=== PATIENT | male | born 1950 | race Caucasian/White ===

== ENCOUNTER 2022-02-01 14:57 | Observation (INO) | payer MEDICARE ==
--- NOTE | 2022-02-01 15:29 | ED ---
General Adult HPI - General Chief complaint: Syncope Stated complaint: syncope Time Seen by Provider: 02/01/22 14:57 Source: patient, family, EMS, RN notes reviewed Mode of arrival: EMS Limitations: no limitations - History of Present Illness Initial comments: 71-year-old male with a history of low back injury in the past with chronic pain also a pain stimulator who states he was walking today and he became lightheaded and dizzy. This recurred again he became weak and shaky apparently sat down on the ground with assistance and was noted be shaking. Patient denies any loss of consciousness he remembers all this had no history of shaky before no seizure disorder. No fevers chills nausea vomiting sweats no headache per paramedics he is much improved from the initial contact. He stated all started when he looked up his head started spinning. No other current complaints or modifying factors - Related Data Home Medications Medication Instructions Recorded Confirmed Ezetimibe [Zetia] 10 mg PO DAILY 02/01/22 02/01/22 Fenofibrate 160 mg PO DAILY 02/01/22 02/01/22 Folic Acid 1 mg PO DAILY 02/01/22 02/01/22 Gabapentin 600 mg PO TID 02/01/22 02/01/22 Lansoprazole [Prevacid] 30 mg PO DAILY 02/01/22 02/01/22 Meclizine HCl 12.5 mg PO TID 02/01/22 02/01/22 Mirabegron [Myrbetriq] 25 mg PO DAILY 02/01/22 02/01/22 Morphine Sulfate Ir [MSIR] 15 mg PO Q6HR 02/01/22 02/01/22 Multivit-Min/Folic/Vit K/Lycop 1 tab PO DAILY 02/01/22 02/01/22 [Men's Multivitamin Tablet] Rosuvastatin Calcium 10 mg PO DAILY 02/01/22 02/01/22 Allergies Allergy/AdvReac Type Severity Reaction Status Date / Time No Known Allergies Allergy Verified 02/01/22 15:13 Review of Systems ROS Statement: Those systems with pertinent positive or pertinent negative responses have been documented in the HPI. ROS Other: All systems not noted in ROS Statement are negative. Past Medical History Additional Past Medical History / Comment(s): neuropathy, spinal stimulator for pain History of Any Multi-Drug Resistant Organisms: None Reported Past Surgical History: Back Surgery Past Psychological History: No Psychological Hx Reported Smoking Status: Never smoker Past Alcohol Use History: None Reported Past Drug Use History: None Reported General Exam - General Exam Comments Initial Comments: This is a well-developed well-nourished awake alert oriented 4 male Limitations: no limitations General appearance: alert, in no apparent distress Head exam: Present: atraumatic, normocephalic, normal inspection Eye exam: Present: normal appearance, PERRL, EOMI. Absent: scleral icterus, conjunctival injection, periorbital swelling ENT exam: Present: mucous membranes dry Neck exam: Present: normal inspection, full ROM, other (No stridor JVD or bruits). Absent: tenderness, meningismus, lymphadenopathy Respiratory exam: Present: normal lung sounds bilaterally. Absent: respiratory distress, wheezes, rales, rhonchi, stridor Cardiovascular Exam: Present: regular rate, normal rhythm, normal heart sounds. Absent: systolic murmur, diastolic murmur, rubs, gallop, clicks GI/Abdominal exam: Present: soft, normal bowel sounds. Absent: distended, tenderness, guarding, rebound, rigid, bruit, pulsatile mass Extremities exam: Present: normal inspection, full ROM, normal capillary refill. Absent: tenderness, pedal edema, joint swelling, calf tenderness Back exam: Present: normal inspection Neurological exam: Present: alert, oriented X3, CN II-XII intact Psychiatric exam: Present: normal affect, normal mood Skin exam: Present: warm, dry, intact, normal color. Absent: rash Course Vital Signs 02/01/22 02/01/22 15:05 19:00 Temperature 97.7 F Pulse Rate 91 82 Respiratory 18 18 Rate Blood Pressure 135/93 144/95 O2 Sat by Pulse 95 95 Oximetry EKG Findings - EKG Results: EKG: interpreted by ANTONIA, sinus rhythm (Sinus rhythm 84 TX interval 179 QRS duration 112 QT/QTC 370/411 left anterior fascicular block no acute ST-T wave changes seen) Medical Decision Making - Medical Decision Making I did have one discussed with the patient and his regarding the findings patient did have an episode lasting approximately 3-5 minutes of what appeared to be shaking-like activity a bystander who is familiar with seizures look like a seizure. Patient states he was having recurrent episodes of dizziness when he would look up but then when he would look down it was fine. He denied any palpitations chest pain focal weakness to his upper or lower extremities patient will be admitted for inpatient evaluation and treatment case be discussed with Dr. Junior on city call - Lab Data Result diagrams: 02/01/22 15:07 02/01/22 15:07 Lab Results 02/01/22 02/01/22 02/01/22 Range/Units 15:07 15:07 15:07 WBC 5.7 (3.8-10.6) k/uL RBC 4.82 (4.30-5.90) m/uL Hgb 15.2 (13.0-17.5) gm/dL Hct 44.0 (39.0-53.0) % MCV 91.3 (80.0-100.0) fL MCH 31.5 (25.0-35.0) pg MCHC 34.5 (31.0-37.0) g/dL RDW 12.5 (11.5-15.5) % Plt Count 321 (150-450) k/uL MPV 7.8 Neutrophils % 51 % Lymphocytes % 34 % Monocytes % 8 % Eosinophils % 4 % Basophils % 1 % Neutrophils # 2.9 (1.3-7.7) k/uL Lymphocytes # 1.9 (1.0-4.8) k/uL Monocytes # 0.5 (0-1.0) k/uL Eosinophils # 0.2 (0-0.7) k/uL Basophils # 0.1 (0-0.2) k/uL Sodium 141 (137-145) mmol/L Potassium 3.9 (3.5-5.1) mmol/L Chloride 105 (98-107) mmol/L Carbon Dioxide 21 L (22-30) mmol/L Anion Gap 15 mmol/L BUN 17 (9-20) mg/dL Creatinine 1.53 H (0.66-1.25) mg/dL Est GFR (CKD-EPI)AfAm 52 (>60 ml/min/1.73 sqM) Est GFR (CKD-EPI)NonAf 45 (>60 ml/min/1.73 sqM) Glucose 87 (74-99) mg/dL Plasma Lactic Acid Rodolfo (0.7-2.0) mmol/L Calcium 9.5 (8.4-10.2) mg/dL Magnesium 2.0 (1.6-2.3) mg/dL Total Bilirubin 0.7 (0.2-1.3) mg/dL AST 38 (17-59) U/L ALT 15 (4-49) U/L Alkaline Phosphatase 50 (38-126) U/L Creatine Kinase 93 (55-170) U/L Total Protein 6.8 (6.3-8.2) g/dL Albumin 4.5 (3.5-5.0) g/dL Lipase 221 (23-300) U/L TSH 3.940 (0.465-4.680) mIU/L Urine Color Light Yellow Urine Appearance Clear (Clear) Urine pH 6.5 (5.0-8.0) Ur Specific [place] 1.006 (1.001-1.035) Urine Protein Negative (Negative) Urine Glucose (UA) Negative (Negative) Urine Ketones Negative (Negative) Urine Blood Negative (Negative) Urine Nitrite Negative (Negative) Urine Bilirubin Negative (Negative) Urine Urobilinogen <2.0 (<2.0) mg/dL Ur Leukocyte Esterase Negative (Negative) Serum Alcohol <10 mg/dL 02/01/22 Range/Units 15:07 WBC (3.8-10.6) k/uL RBC (4.30-5.90) m/uL Hgb (13.0-17.5) gm/dL Hct (39.0-53.0) % MCV (80.0-100.0) fL MCH (25.0-35.0) pg MCHC (31.0-37.0) g/dL RDW (11.5-15.5) % Plt Count (150-450) k/uL MPV Neutrophils % % Lymphocytes % % Monocytes % % Eosinophils % % Basophils % % Neutrophils # (1.3-7.7) k/uL Lymphocytes # (1.0-4.8) k/uL Monocytes # (0-1.0) k/uL Eosinophils # (0-0.7) k/uL Basophils # (0-0.2) k/uL Sodium (137-145) mmol/L Potassium (3.5-5.1) mmol/L Chloride (98-107) mmol/L Carbon Dioxide (22-30) mmol/L Anion Gap mmol/L BUN (9-20) mg/dL Creatinine (0.66-1.25) mg/dL Est GFR (CKD-EPI)AfAm (>60 ml/min/1.73 sqM) Est GFR (CKD-EPI)NonAf (>60 ml/min/1.73 sqM) Glucose (74-99) mg/dL Plasma Lactic Acid [place] 2.0 (0.7-2.0) mmol/L Calcium (8.4-10.2) mg/dL Magnesium (1.6-2.3) mg/dL Total Bilirubin (0.2-1.3) mg/dL AST (17-59) U/L ALT (4-49) U/L Alkaline Phosphatase (38-126) U/L Creatine Kinase (55-170) U/L Total Protein (6.3-8.2) g/dL Albumin (3.5-5.0) g/dL Lipase (23-300) U/L TSH (0.465-4.680) mIU/L Urine Color Urine Appearance (Clear) Urine pH (5.0-8.0) Ur Specific [place] (1.001-1.035) Urine Protein (Negative) Urine Glucose (UA) (Negative) Urine Ketones (Negative) Urine Blood (Negative) Urine Nitrite (Negative) Urine Bilirubin (Negative) Urine Urobilinogen (<2.0) mg/dL Ur Leukocyte Esterase (Negative) Serum Alcohol mg/dL - Radiology Data Radiology results: report reviewed (Imaging reviewed no acute findings), image reviewed Disposition Clinical Impression: Syncope, Seizure Disposition: ADMITTED IP TO THIS [facility] Condition: Stable Referrals: Saleem Chan MD [Primary Care Provider] - 1-2 days Decision Date: 02/01/22 Decision Time: 19:45
[2022-02-01 15:41] LABS: ALT 15 U/L (4-49); AST 38 U/L (17-59); African American GFR (CKD) 52 (>60 ml/min/1.73 sqM); Albumin 4.5 g/dL (3.5-5.0); Alcohol <10 mg/dL; Alkaline Phosphatase 50 U/L (38-126); Anion Gap 15 mmol/L; Blood Urea Nitrogen 17 mg/dL (9-20); Calcium 9.5 mg/dL (8.4-10.2); Carbon Dioxide 21 mmol/L (22-30); Chloride 105 mmol/L (98-107); Creatine Kinase 93 U/L (55-170); Glucose 87 mg/dL (74-99); Lipase 221 U/L (23-300); Non-African American GFR(CKD) 45 (>60 ml/min/1.73 sqM); Potassium 3.9 mmol/L (3.5-5.1); Sodium 141 mmol/L (137-145); Total Bilirubin 0.7 mg/dL (0.2-1.3); Total Protein 6.8 g/dL (6.3-8.2)
[2022-02-01 15:42] LABS: Basophils # (A) 0.1 k/uL (0-0.2); Basophils % (A) 1 %; Eosinophils # (A) 0.2 k/uL (0-0.7); Eosinophils % (A) 4 %; HGB 15.2 gm/dL (13.0-17.5); Lymphocytes # (A) 1.9 k/uL (1.0-4.8); Lymphocytes % (A) 34 %; MCH 31.5 pg (25.0-35.0); MCHC 34.5 g/dL (31.0-37.0); MCV 91.3 fL (80.0-100.0); Mean Platelet Volume 7.8; Monocytes # (A) 0.5 k/uL (0-1.0); Monocytes % (A) 8 %; Neutrophils # (A) 2.9 k/uL (1.3-7.7); Neutrophils % (A) 51 %; Platelet Count 321 k/uL (150-450); RBC 4.82 m/uL (4.30-5.90); RDW 12.5 % (11.5-15.5); WBC 5.7 k/uL (3.8-10.6)
--- NOTE | 2022-02-01 15:48 | CT ---
EXAMINATION TYPE: CT brain wo con DATE OF EXAM: 02/01/2022 COMPARISON: None HISTORY: syncope CT DLP: 1227.4 mGycm Automated exposure control for dose reduction was used. There is cerebral cortical atrophy. There is no mass effect or midline shift. No sign of intracranial hemorrhage. Calvarium is intact. IMPRESSION: Cerebral atrophy. No acute intracranial abnormality.
--- NOTE | 2022-02-01 15:55 | XR ---
EXAMINATION TYPE: XR chest 2V DATE OF EXAM: 02/01/2022 COMPARISON: NONE HISTORY: Pain TECHNIQUE: 2 view FINDINGS: Heart and mediastinum are normal. Lungs are clear. Diaphragm is normal. There is no stimula tor in the lower thoracic spine. IMPRESSION: Normal chest
[2022-02-01 17:33] LABS: Appearance,Urine Clear (Clear); Bilirubin,Urine Negative (Negative); Blood,Urine Negative (Negative); Color,Urine Light Yellow; Glucose,Urine (UA) Negative (Negative); Ketones,Urine Negative (Negative); Leukocyte Esterase,Urine Negative (Negative); Nitrite,Urine Negative (Negative); PH, Urine 6.5 (5.0-8.0); Protein,Urine Negative (Negative); Specific Gravity,Urine 1.006 (1.001-1.035); Urobilinogen,Urine <2.0 mg/dL (<2.0)
[2022-02-01] MEDS ORDERED: NALOXONE 0.4 MG/ML 1 ML VIAL IV PRN (19:59)
[2022-02-01] MEDS: GABAPENTIN 300 MG CAP PO SCH (21:11)
[2022-02-01] MEDS: MECLIZINE 12.5 MG TAB PO SCH (21:12)
[2022-02-01] MEDS: SODIUM CHLORIDE 0.9% 1,000 ML IV SCH (21:12)
[2022-02-01] MEDS: MORPHINE SULFATE IR 15 MG TABLET PO SCH (23:37)
[2022-02-02] MEDS: MORPHINE SULFATE IR 15 MG TABLET PO SCH ×4 (06:32→23:37)
[2022-02-02] MEDS: MECLIZINE 12.5 MG TAB PO SCH ×3 (09:40→21:36)
[2022-02-02] MEDS: SODIUM CHLORIDE 0.9% 1,000 ML IV SCH ×2 (09:40→11:45)
[2022-02-02] MEDS: FOLIC ACID 1 MG TAB PO SCH (09:41)
[2022-02-02] MEDS: PANTOPRAZOLE 40 MG TABLET PO SCH (09:41)
[2022-02-02] MEDS: FENOFIBRATE 160 MG TAB PO SCH (09:41)
[2022-02-02] MEDS: ATORVASTATIN 20 MG TAB PO SCH (09:41)
[2022-02-02] MEDS: MULTIVITAMINS, THERA 1 EACH TAB PO SCH (09:41)
[2022-02-02] MEDS: GABAPENTIN 300 MG CAP PO SCH ×3 (09:42→21:36)
[2022-02-02] MEDS: PATIENT'S OWN (Mirabegron [Myrbetriq] 25 MG Tab.Er.24h) PO SCH (09:44)
[2022-02-02] MEDS: EZETIMIBE 10 MG TAB PO SCH (11:44)
--- NOTE | 2022-02-02 13:14 | P.CNNES ---
History of Present Illness Consult date: 02/02/22 Requesting physician: Mansoor Morris Reason for Consult: Possible new-onset seizure, syncopal episode History of Present Illness: Patient is a 71-year-old male came to the hospital by ambulance yesterday at 2:57 PM for possible syncopal spell versus seizure. As per EMS flow sheet, when they arrived, found patient laying on the ground. Patient was noted to be alert but weak and unstable. Patient states he was walking with his and started to feel weak and disoriented. Patient had possible syncopal episode with seizure-like activity. Patient's EKG shows sinus tachycardia. EKG was unremarkable. Patient's blood glucose was 81 mg/dL. Patient's blood pressure 173/93, pulse rate 101, respirations 18, saturation 97%. Patient's blood test shows normal CBC, normal chem 20, but BUN normal 17 creatinine 1.53. Troponins negative. TSH normal, lipase normal. UA negative. Blood alcohol level negative. CT head showed cerebral atrophy. No acute process. I personally reviewed CT head, agree with the findings. EKG with sinus rhythm, left anterior fascicular block. Chest x-ray revealed no acute process. Patient's and daughter were present at the time of this interview. They mentioned that patient and his were walking in the main street in [place], when he started feeling dizzy. The dizziness would get worse if he would look up, felt will pass out. He would sit down on a bench, and puts his head down and feels better after resting for couple minutes, but the symptoms would not go away completely. He would get up again and start walking but the dizziness will get worse. He took multiple breaks by sitting on the bench. He just wanted to go back home that was about 1-1/2 blocks away. After walking 3 blocks, he was walking, again became dizzy and then he started falling over, but his helped him. He was shaking for 3 minutes. Patient denies loss of consciousness, as he remembers shaking. There was no tongue bite or loss of control of urine. He did bump his hand against the bricks, but did not suffer from significant injury. Patient's called the ambulance and was brought here. Patient states that about once or twice a year he gets similar symptoms of di zziness while standing or walking, but after he sits down or lays down for half an hour, it goes away. Patient states about 2 years ago he was raking leaves, and the same thing happened again and, when he started shaking like this time. Patient also used to drink quite heavily about 8-12 beers per day for about 15- 20 years. After he quit alcohol, he had a seizure, which was felt to be alcohol withdrawal related, or related to use of Cymbalta, which was just started at that time. After Cymbalta was discontinued, he never had any seizure-like spell. Patient's medications include morphine 15 mg every 6 hours, Myrbetriq, Zetia 10 mg, multivitamin, meclizine, Prevacid, gabapentin 600 mg 3 times a day, folic acid 1 mg, fenofibrate, Crestor 10 mg. patient has neuropathy in the legs, low back pain and frequent grams. Patient quit tobacco and alcohol use 30 years ago. Patient has smoked 2 packs per day and used to drink 8-12 beers per day, for 15-20 years prior to quitting 30 years ago. Patient states that he has chronic low back pain for which he has been on morphine since 2002. He does have an electric stimulator. Review of Systems Constitutional: Denies chills, Denies fever Eyes: denies blurred vision, denies pain Ears, nose, mouth and throat: Reports headache, Denies sore throat Cardiovascular: Reports lightheadedness, Reports shortness of breath, Denies anand st pain, Denies leg edema Respiratory: Denies cough Gastrointestinal: Denies abdominal pain, Denies diarrhea, Denies nausea, Denies vomiting Musculoskeletal: Denies myalgias Integumentary: Denies pruritus, Denies rash Psychiatric: Reports anxiety, Denies depression Endocrine: Denies fatigue, Denies weight change Hematologic/Lymphatic: Denies easy bruising Allergic/Immunologic: Denies persistent infections Past Medical History Additional Past Medical History / Comment(s): neuropathy, spinal stimulator for pain History of Any Multi-Drug Resistant Organisms: None Reported Past Surgical History: Back Surgery Past Psychological History: No Psychological Hx Reported Smoking Status: Former smoker Past Alcohol Use History: None Reported Past Drug Use History: None Reported Medications and Allergies Home Medications Medication Instructions Recorded Confirmed Type Ezetimibe [Zetia] 10 mg PO DAILY 02/01/22 02/01/22 History Fenofibrate 160 mg PO DAILY 02/01/22 02/01/22 History Folic Acid 1 mg PO DAILY 02/01/22 02/01/22 History Gabapentin 600 mg PO TID 02/01/22 02/01/22 History Lansoprazole [Prevacid] 30 mg PO DAILY 02/01/22 02/01/22 History Meclizine HCl 12.5 mg PO TID 02/01/22 02/01/22 History Mirabegron [Myrbetriq] 25 mg PO DAILY 02/01/22 02/01/22 History Morphine Sulfate Ir [MSIR] 15 mg PO Q6HR 02/01/22 02/01/22 History Multivit-Min/Folic/Vit K/Lycop 1 tab PO DAILY 02/01/22 02/01/22 History [Men's Multivitamin Tablet] Rosuvastatin Calcium 10 mg PO DAILY 02/01/22 02/01/22 History Allergies Allergy/AdvReac Type Severity Reaction Status Date / Time No Known Allergies Allergy Verified 02/01/22 15:13 Physical Examination - Vital Signs Vital Signs: Vital Signs Temp Pulse Pulse Resp BP BP Pulse Ox 02/02/22 07:45 97.7 F 67 16 150/81 98 02/02/22 04:00 68 16 130/85 97 02/01/22 22:00 98.2 F 72 18 147/92 96 02/01/22 21:13 76 15 126/90 96 02/01/22 21:02 97.8 F 78 17 126/90 98 02/01/22 19:00 82 18 144/95 95 02/01/22 15:05 97.7 F 91 18 135/93 95 Intake and Output 02/01/22 02/02/22 02/02/22 22:59 06:59 14:59 Intake Total 485 1485 Balance 485 1485 Intake: Intake, IV Titration 1000 Amount Sodium Chloride 0.9% 1, 1000 000 ml @ 130 mls/hr IV . Q7H42M [facility] Rx#:[id number] Oral 485 485 Other: Voiding Method Toilet # Voids 1 1 1 Weight 79.832 kg Patient is an elderly male, in no acute distress. Patient is alert awake oriented to time place and person. Speech and language functions are normal. Patient can name and repeat very well. No aphasia or dysarthria. Attention, concentration and fund of knowledge is adequate. On cranial nerve examination, pupils are equal, round and reacting to light, visual doan are full on confrontation, with no neglect on double simultaneous stimulation. Extraocular muscles are intact with no nystagmus. Face is symmetric, tongue protrudes to the midline. Palatal elevation and sensation normal, hearing and shoulder shrug normal, facial sensation normal. On muscle strength testing, there is no pronator drift and the strength is normal in arms and legs distally and proximally. Deep tendon reflexes are symmetric biceps 1-1+, brachioradialis 1-1+, knees 1, ankles 0 and plantars downgoing bilaterally. Sensory to touch is equal with no neglect on double simultaneous stimulation. Cerebellar function showed no ataxia for [id number] testing. No dysdiadochokinesia. No ataxia for [id number] testing on either side. Tone and bulk of muscles normal. Patient has mild tremulousness for outstretched hands particularly the left. Gait deferred.. On general examination, there is no carotid bruit or murmur, S1-S2 audible. Chest is clear on consultation. Abdomen is soft nontender. No organomegaly, bowel sounds present. Peripheral pulses are present. No edema. Results - Laboratory Findings CBC and BMP: 02/01/22 15:07 02/01/22 15:07 Abnormal Lab Findings: Abnormal Labs 02/01/22 15:07 Carbon Dioxide 21 L Creatinine 1.53 H Assessment and Plan Assessment: * Syncopal spell versus convulsive syncope. Seizure appears unlikely. History of near syncopal spells in the past. * Chronic back pain, history of spinal cord simulator. 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 Plan: * We will perform syncopal workup. * Check carotid Doppler to rule out stenosis * EEG to rule out any epileptiform activity. * 2-D echo * Neurology will follow. Thank you for the consult.
--- NOTE | 2022-02-02 15:25 | US ---
EXAMINATION TYPE: US carotid duplex BILAT DATE OF EXAM: 02/02/2022 COMPARISON: NONE CLINICAL HISTORY: Syncope. TECHNIQUE: Carotid duplex ultrasound examination. Indirect Doppler criteria was utilized. FINDINGS: EXAM MEASUREMENTS: RIGHT: Peak Systolic Velocity (PSV) cm/sec ----- Right CCA: 54.9 ----- Right ICA: 56.6 ----- Right ECA: 48.8 ICA/CCA ratio: 1.0 RIGHT: End Diastole cm/sec ----- Right CCA: 19.1 ----- Right ICA: 27.8 ----- Right ECA: 6.9 LEFT: Peak Systolic Velocity (PSV) cm/sec ----- Left CCA: 72.3 ----- Left ICA: 76.8 ----- Left ECA: 57.0 ICA/CCA ratio: 1.1 LEFT: End Diastole cm/sec ----- Left CCA: 19.1 ----- Left ICA: 29.6 ----- Left ECA: 8.7 VERTEBRALS (direction of flow): Right Vertebral: Antegrade Left Vertebral: Antegrade Rhythm: Normal [employer] NOTES: No significant stenosis seen, no elevated velocities. Mild to moderate plaque note d. IMPRESSION: Mild to moderate atherosclerotic plaque bilaterally with less than 50% stenosis at the origin of the internal carotid arteries bilaterally. Criteria for Assigning % of Stenosis / Diameter reduction (Estimation based on the indirect measurements of the internal carotid artery velocities (ICA PSV). 1. Normal (no stenosis)=ICA PSV < 125 cm/s: ratio < 2.0: ICA EDV<40 cm/s. 2. Less than 50% stenosis=ICA PSV < 125 cm/s: ratio < 2.0: ICA EDV<40 cm/s. 3. 50 to 69% stenosis=ICA PSV of 125 to 230 cm/s: ration 2.0 ? 4.0: ICA EDV 40-100 cm/s. 4. Greater than 70% stenosis to near occlusion= ICA PSV > 230 cm/s: ratio > 4.0: ICA EDV > 100 cm/s. 5. Near occlusion= ICA PSV velocities may be low or undetectable: variable ratio and ICA EDV. 6. Total occlusion=unable to detect flow.
[2022-02-02] MEDS: ACETAMINOPHEN TAB 325 MG TAB PO PRN (17:34)
[2022-02-02 20:19] VITALS: RESP 16
[2022-02-03] MEDS: SODIUM CHLORIDE 0.9% 1,000 ML IV SCH ×2 (06:18→19:39)
[2022-02-03] MEDS: MORPHINE SULFATE IR 15 MG TABLET PO SCH ×2 (06:18→19:39)
[2022-02-03 09:46] LABS: Calcium 9.8 mg/dL (8.4-10.2); Potassium 4.5 mmol/L (3.5-5.1)
--- NOTE | 2022-02-03 09:54 | P.HPIM ---
History of Present Illness H&P Date: 02/02/22 This is a 71 year old male who follows with Dr. Saleem Chan in the outpatient setting and presented to the emergency department with feeling of syncope and had been out walking and started becoming lightheaded and dizzy and had to sit down and denies any passing out. Patient reports he has no seizure history although when he was drinking did have an alcoholic withdrawal induced seizure one time. Patient denied chest pain, shortness of breath. Neurology along with pain management as patient does have a pain stimulator and follows in the outpatient setting. Patient with a past medical history of neuropathy, spinal stimulator for pain. Patient does have meclizine on his med list that he uses as needed. On admissions labs show an elevated creatinine of 1.53 and other labs within normal limits, troponins 2 were negative and urinalysis was negative. Patient was started on gentle IV hydration and other home meds have been reordered. Brain CT was done showing cerebral atrophy with no acute intracranial abnormality. Chest x-ray was normal. EKG showing sinus rhythm with a heart rate of 84. REVIEW OF SYSTEMS: CONSTITUTIONAL: No fever, no malaise, no fatigue. HEENT: No recent visual problems or hearing problems. Denied any sore throat. CARDIOVASCULAR: No chest pain, orthopnea, PND, no palpitations, no syncope. PULMONARY no hemoptysis. GASTROINTESTINAL: No diarrhea, no nausea, no vomiting, no abdominal pain. NEUROLOGICAL: No headaches, no weakness, no numbness. Patient reported dizziness, lightheadedness, feeling of passing out but did not pass out which has resolved since HEMATOLOGICAL: Denies any bleeding or petechiae. GENITOURINARY: Denies any burning micturition, frequency, or urgency. MUSCULOSKELETAL/RHEUMATOLOGICAL: Denies any joint pain, swelling, or any muscle pain. reports resolved right hip pain ENDOCRINE: Denies any polyuria or polydipsia. The rest of the 14-point review of systems is negative. PHYSICAL EXAMINATION: GENERAL: The patient is alert and oriented x3, not in any acute distress. Well developed, well nourished. HEENT: Pupils are round and equally reacting to light. EOMI. No scleral icterus. No conjunctival pallor. Normocephalic, atraumatic. No pharyngeal erythema. No thyromegaly. CARDIOVASCULAR: S1 and S2 present. No murmurs, rubs, or gallops. PULMONARY: Bilateral diminished breath sounds with no wheezing or rhonchi noted. ABDOMEN: Soft, nontender, nondistended, normoactive bowel sounds. No palpable organomegaly. MUSCULOSKELETAL: No joint swelling or deformity. EXTREMITIES: No cyanosis, clubbing, or pedal edema. NEUROLOGICAL: Gross neurological examination did not reveal any focal deficits. SKIN: No rashes. Assessment: Dizziness, lightheadedness episode possible presyncopal History of neuropathy with a spinal stimulator for pain and follows with pain management Elevated creatinine, likely prerenal Diabetes mellitus, type II Hyperlipidemia GI prophylaxis DVT prophylaxis Full code Plan: Recommend gentle IV hydration and neurology consulted Neurological workup including carotid Doppler Pain management consulted as patient does have a pain stimulator and follows outpatient CT brain was done showing no acute abnormalities Recommend repeat labs in a.m. Recommend resuming home meds Await neurology and pain management clearance Will order 2-D echo which is pending Possible discharge in 24-48 hours The impression and plan of care has been dictated as a scribe by Susanna Gamble, Nurse Practitioner as directed. MD Emily I have performed a history and examination and MDM of this patient, discussed the same with the dictator, and agree with the dictator's assessment and plan as written ,documented as a scribe. Based on total visit time, I have performed more than 50% of the visit. Past Medical History Additional Past Medical History / Comment(s): neuropathy, spinal stimulator for pain History of Any Multi-Drug Resistant Organisms: None Reported Past Surgical History: Back Surgery Past Psychological History: No Psychological Hx Reported Smoking Status: Never smoker Past Alcohol Use History: None Reported Past Drug Use History: None Reported Medications and Allergies Home Medications Medication Instructions Recorded Confirmed Type Ezetimibe [Zetia] 10 mg PO DAILY 02/01/22 02/01/22 History Fenofibrate 160 mg PO DAILY 02/01/22 02/01/22 History Folic Acid 1 mg PO DAILY 02/01/22 02/01/22 History Gabapentin 600 mg PO TID 02/01/22 02/01/22 History Lansoprazole [Prevacid] 30 mg PO DAILY 02/01/22 02/01/22 History Meclizine HCl 12.5 mg PO TID 02/01/22 02/01/22 History Mirabegron [Myrbetriq] 25 mg PO DAILY 02/01/22 02/01/22 History Morphine Sulfate Ir [MSIR] 15 mg PO Q6HR 02/01/22 02/01/22 History Multivit-Min/Folic/Vit K/Lycop 1 tab PO DAILY 02/01/22 02/01/22 History [Men's Multivitamin Tablet] Rosuvastatin Calcium 10 mg PO DAILY 02/01/22 02/01/22 History Allergies Allergy/AdvReac Type Severity Reaction Status Date / Time No Known Allergies Allergy Verified 02/01/22 15:13 Physical Exam Vitals: Vital Signs Temp Pulse Pulse Resp BP BP Pulse Ox 02/02/22 11:45 70 16 160/94 97 02/02/22 07:45 97.7 F 67 16 150/81 98 02/02/22 04:00 68 16 130/85 97 02/01/22 22:00 98.2 F 72 18 147/92 96 02/01/22 21:13 76 15 126/90 96 02/01/22 21:02 97.8 F 78 17 126/90 98 02/01/22 19:00 82 18 144/95 95 02/01/22 15:05 97.7 F 91 18 135/93 95 Intake and Output 02/01/22 02/02/22 02/02/22 22:59 06:59 14:59 Intake Total 485 1485 Balance 485 1485 Intake: Intake, IV Titration 1000 Amount Sodium Chloride 0.9% 1, 1000 000 ml @ 130 mls/hr IV . [id number] [facility] Rx#:[id number] Oral 485 485 Other: Voiding Method Toilet Toilet # Voids 1 1 1 Weight 79.832 kg Results CBC & Chem 7: 02/01/22 15:07 02/01/22 15:07 Labs: Abnormal Lab Results - Last 24 Hours (Table) 02/01/22 Range/Units 15:07 Carbon Dioxide 21 L (22-30) mmol/L Creatinine 1.53 H (0.66-1.25) mg/dL
[2022-02-03] MEDS: ATORVASTATIN 20 MG TAB PO SCH (09:58)
[2022-02-03] MEDS: GABAPENTIN 300 MG CAP PO SCH ×3 (10:00→21:19)
[2022-02-03] MEDS: FENOFIBRATE 160 MG TAB PO SCH (10:00)
[2022-02-03] MEDS: FOLIC ACID 1 MG TAB PO SCH (10:00)
[2022-02-03] MEDS: MECLIZINE 12.5 MG TAB PO SCH ×3 (10:01→21:19)
[2022-02-03] MEDS: MULTIVITAMINS, THERA 1 EACH TAB PO SCH (10:01)
[2022-02-03] MEDS: PANTOPRAZOLE 40 MG TABLET PO SCH (10:02)
[2022-02-03] MEDS: ACETAMINOPHEN TAB 325 MG TAB PO PRN (10:02)
[2022-02-03] MEDS: PATIENT'S OWN (Mirabegron [Myrbetriq] 25 MG Tab.Er.24h) PO SCH (11:10)
[2022-02-03] MEDS: EZETIMIBE 10 MG TAB PO SCH (19:39)
--- NOTE | 2022-02-03 23:44 | P.PN ---
Subjective Progress Note Date: 02/03/22 This is a 71 year old male who follows with Dr. Saleem Chan in the outpatient setting and presented to the emergency department with feeling of syncope and had been out walking and started becoming lightheaded and dizzy and had to sit down and denies any passing out. Patient reports he has no seizure history although when he was drinking did have an alcoholic withdrawal induced seizure one time. Patient denied chest pain, shortness of breath. Neurology along with pain management as patient does have a pain stimulator and follows in the outpatient setting. Patient with a past medical history of neuropathy, spinal stimulator for pain. Patient does have meclizine on his med list that he uses a s needed. On admissions labs show an elevated creatinine of 1.53 and other labs within normal limits, troponins 2 were negative and urinalysis was negative. Patient was started on gentle IV hydration and other home meds have been reordered. Brain CT was done showing cerebral atrophy with no acute intracranial abnormality. Chest x-ray was normal. EKG showing sinus rhythm with a heart rate of 84. 02/03/2022 Patient is seen and evaluated in follow-up with no acute overnight issues noted. Neurology following an EEG was done and reported as normal although computers are down and unable to see the report. Discussed with neurology Dr. Haywood and has been cleared. Discussion of possible event monitor although family reports he has a senior talent acquisition specialist out of [place] Dr. Carlisle and has an February appointment which she is calling to have him seen sooner. Patient also follows with Dr. Han pain management and has a scheduled appointment as well. Awaiting 2-D echo to be read and agreeable to stay for the results. Patient initially was anxious to go home. Patient denies any further episodes of dizziness or lightheadedness. Reports mild headache. Blood pressure is mildly elevated and will give a one time norvasc and monitor overnight. Review of systems: Constitutional: No reports of fatigue, fever, or chills, reports mild headache Cardiovascular: No reports of chest pain or palpitations Respiratory: No reports of shortness of breath or cough GI: No reports of nausea, vomiting, or diarrhea : No reports of dysuria or retention Neurovascular: No reports of weakness or numbness All medications have been reviewed Active Medications Acetaminophen (Acetaminophen Tab 325 Mg Tab) 650 mg PO Q6HR PRN PRN Reason: Mild Pain or Fever > 100.5 Last Admin: 02/03/22 10:02 Dose: 650 mg Atorvastatin Calcium (Atorvastatin 20 Mg Tab) 20 mg PO DAILY [facility] Last Admin: 02/03/22 09:58 Dose: 20 mg Ezetimibe (Ezetimibe 10 Mg Tab) 10 mg PO DAILY [facility] Last Admin: 02/02/22 11:44 Dose: 10 mg Fenofibrate (Fenofibrate 160 Mg Tab) 160 mg PO DAILY [facility] Last Admin: 02/03/22 10:00 Dose: 160 mg Folic Acid (Folic Acid 1 Mg Tab) 1 mg PO DAILY [facility] Last Admin: 02/03/22 10:00 Dose: 1 mg Gabapentin (Gabapentin 300 Mg Cap) 600 mg PO TID [facility] Last Admin: 02/03/22 10:00 Dose: 600 mg Sodium Chloride (Saline 0.9%) 1,000 mls @ 75 mls/hr IV .[id number] [facility] Last Admin: 02/03/22 06:18 Dose: 75 mls/hr Meclizine HCl (Meclizine 12.5 Mg Tab) 12.5 mg PO TID [facility] Last Admin: 02/03/22 10:01 Dose: 12.5 mg Morphine Sulfate (Morphine Sulfate Ir 15 Mg Tablet) 15 mg PO Q6HR [facility] Last Admin: 02/03/22 06:18 Dose: 15 mg Multivitamins (Multivitamins, Thera 1 Each Tab) 1 each PO DAILY [facility] Last Admin: 02/03/22 10:01 Dose: 1 each Naloxone HCl (Naloxone 0.4 Mg/Ml 1 Ml Vial) 0.2 mg IV Q2M PRN PRN Reason: Opioid Reversal Patient's Own ( Mirabegron [ Myrbetriq] 25 Mg Tab .Er.24h) 25 mg PO DAILY [facility] Last Admin: 02/03/22 11:10 Dose: Not Given Pantoprazole Sodium (Pantoprazole 40 Mg Tablet) 40 mg PO DAILY [facility] Last Admin: 02/03/22 10:02 Dose: 40 mg PHYSICAL EXAMINATION: GENERAL: The patient is alert and oriented x3, not in any acute distress. Well developed, well nourished. HEENT: Pupils are round and equally reacting to light. EOMI. No scleral icterus. No conjunctival pallor. Normocephalic, atraumatic. No pharyngeal erythema. No thyromegaly. CARDIOVASCULAR: S1 and S2 present. No murmurs, rubs, or gallops. PULMONARY: Bilateral diminished breath sounds with no wheezing or rhonchi noted. ABDOMEN: Soft, nontender, nondistended, normoactive bowel sounds. No palpable organomegaly. MUSCULOSKELETAL: No joint swelling or deformity. EXTREMITIES: No cyanosis, clubbing, or pedal edema. NEUROLOGICAL: Gross neurological examination did not reveal any focal deficits. SKIN: No rashes. Assessment: Dizziness, lightheadedness episode possible presyncopal History of neuropathy with a spinal stimulator for pain and follows with pain ma nagement Elevated creatinine, likely prerenal, improving Diabetes mellitus, type II Hyperlipidemia GI prophylaxis DVT prophylaxis Full code Plan: Recommend neurology evaluation and awaiting EEG and echo Neurological workup including carotid Doppler showing less than 50% stenosis CT brain was done showing no acute abnormalities Recommend resuming home meds Neurology cleared the patient as eeg was normal. pending echo and computer are down and unable to read reports. Patient has a senior talent acquisition specialist appointment and at the bedside called to change the appointment date of sooner than the [facility] February appointment. Discussion was had about event monitor and they prefer to await echo and have event monitor with their senior talent acquisition specialist Dr. Carlisle Will await 2-D echo Possible discharge in 24 hours The impression and plan of care has been dictated by Susanna Gamble, Nurse Practitioner as directed. MD Ira I have performed a history and examination and MDM of this patient, discussed the same with the dictator, and agree with the dictator's assessment and plan as written ,documented as a scribe. Based on total visit time, I have performed more than 50% of the visit. Objective - Vital Signs Vital signs: Vital Signs Temp 97.9 F 02/03/22 07:40 Pulse 65 02/03/22 04:00 Resp 16 02/03/22 08:28 BP 171/93 02/03/22 07:40 Pulse Ox 98 02/03/22 07:40 FiO2 Intake & Output 02/02/22 02/03/22 02/03/22 18:59 06:59 18:59 Intake Total 485 296 Balance 485 296 Intake: Oral 485 296 Other: Voiding Method Toilet Toilet Toilet # Voids 2 1 1 - Labs CBC & Chem 7: 02/01/22 15:07 02/03/22 09:00 Labs: Abnormal Lab Results - Last 24 Hours (Table) 02/03/22 Range/Units 09:00 Creatinine 1.38 H (0.66-1.25) mg/dL Glucose 101 H (74-99) mg/dL
--- NOTE | 2022-02-04 00:48 | EEG ---
ELECTROENCEPHALOGRAM REPORT PREAMBLE: This is a 71-year-old male with a syncopal spell. This study is performed to evaluate for any epileptiform activity. EEG FINDINGS: This is a 21-channel digital EEG recorded with video component, utilizing 10/20 international system with referential and bipolar montages. Background consists of well-developed, moderately well regulated, predominantly moderate amplitude, 6 to 7 hertz theta seen in bihemispheric region. Background is posterior dominant and reactive to eye opening and closing. Photic driving response was seen with some flash frequencies. Some drowsiness was seen with appearance of more consistent moderate amplitude theta frequency rhythm. Deeper stages of sleep were not seen. No focal or generalized epileptiform activity was seen. IMPRESSION: This is an abnormal EEG due to background slowing of mild degree. This is suggestive of generalized cerebral dysfunction, as can be seen with encephalopathy of metabolic, degenerative, or vascular causes. Clinical correlation recommended. No epileptiform activity was seen. MMODL / IJN: [id number] /
[2022-02-04] MEDS: MORPHINE SULFATE IR 15 MG TABLET PO SCH ×3 (06:00→12:32)
[2022-02-04] MEDS: PANTOPRAZOLE 40 MG TABLET PO SCH (10:10)
[2022-02-04] MEDS: FOLIC ACID 1 MG TAB PO SCH (10:10)
[2022-02-04] MEDS: HEPARIN SODIUM,PORCINE/PF 5,000 UNIT/0.5 ML SYRINGE SQ SCH ×2 (10:10)
[2022-02-04] MEDS: MECLIZINE 12.5 MG TAB PO SCH (10:10)
[2022-02-04] MEDS: FENOFIBRATE 160 MG TAB PO SCH (10:11)
[2022-02-04] MEDS: ATORVASTATIN 20 MG TAB PO SCH (10:11)
[2022-02-04] MEDS: GABAPENTIN 300 MG CAP PO SCH (10:11)
--- NOTE | 2022-02-04 10:18 | CA ---
Transthoracic Echo Report Name: Rony Gil Age: 71 Gender: M : 1950 Exam Date: 02/03/2022 13:44 Exam Location: [facility] Ht (in): 73 Wt (lb): 176 Ordering Physician: Susanna Gamble Attending/Referring Phys: Cash Accounting Clerk Maren Cadena RDCS Procedure CPT: Indications: SYNCOPE, DIZZY, LIGHTHEADED Cardiac Hx: Technical Quality: Good Contrast 1: Total Dose (mL): Contrast 2: Total Dose (mL): MEASUREMENTS (Male / Female) Normal Values 2D ECHO LV Diastolic Diameter PLAX 4.6 cm 4.2 - 5.9 / 3.9 - 5.3 cm LV Systolic Diameter PLAX 2.9 cm IVS Diastolic Thickness 1.3 cm 0.6 - 1.0 / 0.6 - 0.9 cm LVPW Diastolic Thickness 1.3 cm 0.6 - 1.0 / 0.6 - 0.9 cm LV Relative Wall Thickness 0.6 RV Internal Dim ED PLAX 3.1 cm LA Systolic Diameter LX 3.6 cm 3.0 - 4.0 / 2.7 - 3.8 cm LA Volume 37.6 cm??? 18 - 58 / 22 - 52 cm??? M-MODE Aortic Root Diameter MM 3.2 cm MV E Point Septal Separation 0.5 cm AV Cusp Separation MM 2.1 cm DOPPLER AV Peak Velocity 103.6 cm/s AV Peak Gradient 4.3 mmHg MV Area PHT 3.2 cm??? Mitral E Point Velocity 71.3 cm/s Mitral A Point Velocity 89.6 cm/s Mitral E to A Ratio 0.8 MV Deceleration Time 238.4 ms MV E' Velocity 6.2 cm/s Mitral E to MV E' Ratio 11.4 TR Peak Velocity 209.5 cm/s TR Peak Gradient 17.6 mmHg FINDINGS Left Ventricle Left ventricular ejection fraction is estimated at 55-60 %. Left ventricular cavity size normal. Mild concentric left ventricular hypertrophy. Right Ventricle Normal right ventricular size and function. Right ventricular systolic pressure within normal limits. Right Atrium Normal right atrial size. Left Atrium Normal left atrial size. No evidence for an atrial septal defect. Mitral Valve Mild mitral regurgitation. Aortic Valve Trileaflet aortic valve. No aortic valve stenosis or regurgitation. Tricuspid Valve Trace to mild tricuspid regurgitation. Pulmonic Valve Pulmonic valve not well visualized. Pericardium Normal pericardium. No pericardial effusion. Aorta Normal size aortic root and proximal ascending aorta. CONCLUSIONS Normal LV size and systolic function. Mild concentric LVH noted. There is mild mitral regurgitation. No significant pulmonary hypertension and no pericardial effusion Previewed by: Dr. Gregorio Hilario MD (Electronically Signed) Final Date: 04 February 2022 10:17
[2022-02-04] MEDS: MULTIVITAMINS, THERA 1 EACH TAB PO SCH (10:23)
[2022-02-04] MEDS: ACETAMINOPHEN TAB 325 MG TAB PO PRN (10:23)
[2022-02-04] MEDS: PATIENT'S OWN (Mirabegron [Myrbetriq] 25 MG Tab.Er.24h) PO SCH (11:45)
[2022-02-04 11:54] VITALS: BP 155/91; PULSE 68; TEMP 97.8
[2022-02-04] MEDS: EZETIMIBE 10 MG TAB PO SCH (12:32)
--- NOTE | 2022-02-04 17:09 | P.PN ---
Subjective Progress Note Date: 02/03/22 Patient was seen for a follow-up. Patient is comfortably sitting in the bed. Offers no complaints. No syncopal spells. Objective - Vital Signs Vital signs: Vital Signs Temp 98.0 F 02/03/22 19:54 Pulse 81 02/03/22 19:54 Resp 16 02/03/22 20:00 BP 146/83 02/03/22 19:54 Pulse Ox 95 02/03/22 19:54 FiO2 Intake & Output 02/03/22 02/03/22 02/04/22 06:59 18:59 06:59 Intake Total 485 296 10 Balance 485 296 10 Intake: IV 10 Invasive Line 1 10 Oral 485 296 Other: Voiding Method Toilet Toilet Toilet # Voids 1 1 - Exam Patient's mental status, speech and language functions are normal. Muscle strength is normal. No ataxia. - Labs CBC & Chem 7: 02/01/22 15:07 02/03/22 09:00 Labs: Abnormal Lab Results - Last 24 Hours (Table) 02/03/22 Range/Units 09:00 Creatinine 1.38 H (0.66-1.25) mg/dL Glucose 101 H (74-99) mg/dL Assessment and Plan Assessment: * Syncopal spell versus convulsive syncope. Seizure appears unlikely. History of near syncopal spells in the past. * Chronic back pain, history of spinal cord simulator placement. 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 Plan: * Carotid Doppler revealed mild to moderate atherosclerotic plaque bilaterally with less than 50% stenosis at the origin of the ICA bilaterally. Antegrade flow in both vertebral arteries. * EEG was abnormal due to background slowing of mild degree. This is suggestive generalized cerebral dysfunction as can be seen with encephalopathy of metabolic, vascular or degenerative cases. No epileptiform activity was seen. * 2-D echo revealed normal left-ventricular size and systolic function with EF 55-60%. Mild concentric LVH. Mild MR. * Patient to undergo event monitor as an outpatient. Discussed with primary team. * Patient states that he does take aspirin 81 mg daily at home, which he was recommended to continue. Continue Crestor. * Neurologically clear.
== END 2022-02-04 12:43 | disposition home or self-care (01) ==
LOC: EC 14:57 → 3SCARD 19:59
PROVIDERS: ADMIT Internal Medicine; ATTEND Internal Medicine
DX: R42 Dizziness and giddiness (principal); R94.01 Abnormal electroencephalogram [EEG]; R79.89 Other specified abnormal findings of blood chemistry; I44.4 Left anterior fascicular block; G31.9 Degenerative disease of nervous system, unspecified; I65.23 Occlusion and stenosis of bilateral carotid arteries; G89.29 Other chronic pain; M54.50 Low back pain, unspecified; G62.9 Polyneuropathy, unspecified; R53.1 Weakness; E11.9 Type 2 diabetes mellitus without complications; E78.5 Hyperlipidemia, unspecified; R41.0 Disorientation, unspecified; R00.0 Tachycardia, unspecified; R51.9 Headache, unspecified; F10.21 Alcohol dependence, in remission; Z79.899 Other long term (current) drug therapy; Z79.891 Long term (current) use of opiate analgesic; Z96.82 Presence of neurostimulator; Z87.891 Personal history of nicotine dependence; Y93.01 Activity, walking, marching and hiking
CPT/HCPCS: 96360; 96361 ×2; 96372 ×2; 99285; 36415; 95816; 93005; 93306; 80053; 80048; 84443; 82550; 83605; 83690; 83735 ×2; 84484 ×2; 85025; 81003; 71046; 93880; 70450; G0378 ×4; G0480; J1644; 80320